=== PATIENT | female | born 1980 | race American Indian/Alaskan Native ===

== ENCOUNTER 2017-01-26 15:27 | Emergency (ER) | payer MEDICAID ==
[2017-01-26 15:28] VITALS: BMI 26.6
[2017-01-26 15:49] VITALS: BP 140/81; TEMP 98.4
[2017-01-26 15:58] VITALS: O2SAT 98
--- NOTE | 2017-01-26 16:06 | ED PDOC ---
Arrival/HPI - General Chief Complaint: Lower Extremity Problem/Injury Time Seen by Provider: 01/26/17 15:58 Historian: Patient - History of Present Illness Narrative History of Present Illness (Text): 01/26/17 17:54 36-year-old female presents today with a one-week history of left ankle and left foot pain. Patient states she had tripped getting out of her truck and twisted the foot and ankle O week ago. Patient states she's been ambulating on it and she is having intermittent swelling and still having pain over the lateral aspect of the ankle and the dorsal aspect of the foot. She denies numbness weakness or tingling in the extremity. Patient states she's been taking some [id number] medications for pain without improvement. Past Medical History - Provider Review Nursing Documentation Reviewed: Yes - Travel History Have you recently traveled outside [place] w/in the past 3 mons?: No - Past History Past History: No Previous - Infectious Disease Hx of Infectious Diseases: None - Tetanus Immunization Tetanus Immunization: Unknown - Past Medical History Past Medical History: No Previous - Cardiac Hx Pacemaker: No - Pulmonary Hx Respiratory Disorders: No - Neurological Hx Migraine: Yes - HEENT Hx HEENT Disorder: No Hx Blind: No Hx Cataracts: No Hx Deafness: No Hx Difficulty Chewing: No Hx Epistaxis: No Hx Glaucoma: No Hx Macular Degeneration: No - Renal Hx Renal Disorder: No Hx Dialysis: No Hx Kidney Stones: No Hx Neurogenic Bladder: No Hx Pyelonephritis: No Hx Renal Cancer: No Hx Renal Failure: No - Endocrine/Metabolic Hx Endocrine Disorders: No - Hematological/Oncological Hx Blood Transfusions: No Hx Blood Transfusion Reaction: No - Integumentary Hx Dermatological Disorder: No - Musculoskeletal/Rheumatological Hx Musculoskeletal Disorders: No - Gastrointestinal Hx Gastrointestinal Disorders: Yes Hx Gastritis: Yes Other/Comment: gastritis - Genitourinary/Gynecological Hx Genitourinary Disorders: No Hx Prostate Problems: No Hx Urinary Tract Infection: Yes - Psychiatric Hx Emotional Abuse: No Hx Physical Abuse: No Hx Substance Use: No - Surgical History Hx Appendectomy: Yes - Anesthesia Hx Anesthesia Reactions: Yes Hx Malignant Hyperthermia: No - Suicidal Assessment Feels Threatened In Home Enviroment: No Family/Social History - Physician Review Nursing Documentation Reviewed: Yes Family/Social History: Unknown Family HX Smoking Status: Never Smoked Hx Alcohol Use: Yes Frequency of alcohol use: Few days per week Hx Substance Use: No Hx Substance Use Treatment: No Allergies/Home Meds Allergies/Adverse Reactions: Allergies prochlorperazine [From Compazine] Allergy (Verified 01/26/17 15:50) RASH prochlorperazine edisylate [From Compazine] Allergy (Verified 01/26/17 15:50) RASH prochlorperazine maleate [From Compazine] Allergy (Verified 01/26/17 15:50) RASH Home Medications: Home Meds Medication Instructions Recorded Confirmed Ranitidine HCl [Zantac] 150 mg PO DAILY 12/30/16 01/26/17 Amitriptyline [Elavil] 10 mg PO DAILY 01/26/17 01/26/17 Review of Systems - Review of Systems Constitutional: absent: Fatigue, Fevers Respiratory: absent: SOB, Cough Cardiovascular: absent: Chest Pain, Palpitations Gastrointestinal: absent: Abdominal Pain, Nausea, Vomiting Genitourinary Female: absent: Dysuria, Frequency, Hematuria Musculoskeletal: Arthralgias (left ankle/foot pain) Skin: absent: Rash, Pruritis Physical Exam Vital Signs Reviewed: Yes Vital Signs Temp Pulse Resp BP Pulse Ox 01/26/17 15:58 88 H 98 01/26/17 15:43 98.4 F 87 18 140/81 99 Temperature: Afebrile Blood Pressure: Normal Pulse: Regular Respiratory Rate: Normal Appearance: Positive for: Well-Appearing, Non-Toxic, Comfortable Pain Distress: None Mental Status: Positive for: Alert and Oriented X 3 - Systems Exam Head: Present: Atraumatic Neck: Present: Normal Range of Motion Respiratory/Chest: Present: Clear to Auscultation, Good Air Exchange. No: Respiratory Distress, Accessory Muscle Use Cardiovascular: Present: Regular Rate and Rhythm, Normal S1, S2. No: Murmurs Lower Extremity: Present: NORMAL PULSES, Normal ROM, Tenderness (Left ankle; + ttp over lateral malleolus, no edema, no erythema; no ecchymosis; full rom of ankle with pain. sensation and distal pulses intact. cap refill <2. + ttp over dorsal aspect of the foot; no edema. ), Neurovascularly Intact. No: CALF TENDERNESS, Swelling, Erythema, Deformity, Capillary Refill < 2 s Neurological: Present: GCS=15 Skin: Present: Warm, Dry, Normal Color. No: Rashes Psychiatric: Present: Alert, Oriented x 3 Medical Decision Making ED Course and Treatment: 01/26/17 17:56 Patient nontoxic well-appearing in no distress with stable vital signs X-rays of the left ankle: No fracture X-rays of the left foot: No fracture Toradol IM Patient placed in [employer]irc[employer] crutches given for ambulation. I discussed all results in depth with the patient advised to followup with the orthopedist within the next 2 days. Advised return if symptoms worsen persist or new symptoms develop i advised the patient that although the xrays show no fracture; there is still a possibility for ligamentous or tendon injury the patient must see the orthopedist for further evaluation. Patient verbalizes understanding of discharge instructions and need for immediate followup. all aspects of this case were discussed the attending of record. Impression: Ankle pain, foot pain Motrin every 6 hours as needed for pain Rest, ice, compression, elevation Use crutches for ambulation Followup with the orthopedist within the next 2 days Followup with primary care physician within the next 2 days Return if symptoms worsen persist or if new symptoms develop - RAD Interpretation Radiology Orders: 01/26/17 15:59 ANKLE LEFT 3 VIEWS ROUTINE [RAD] Stat FOOT LEFT 3 VIEWS ROUTINE [RAD] Stat - Medication Orders Current Medication Orders: Discontinued Medications Ketorolac Tromethamine (Toradol) 60 mg IM STAT STA Stop: 01/26/17 16:00 Last Admin: 01/26/17 16:08 Dose: 60 MG IM Administration Charges Document 01/26/17 16:08 [email or web address] (Rec: 01/26/17 16:08 [email or web address] [facility] [place]-FAST- TRACK2) Injection Site MAR Injection Site Right Gluteus Raúl Charges for Administration # of IM Administrations 1 Disposition/Present on Arrival - Present on Arrival Any Indicators Present on Arrival: No History of DVT/PE: No History of Uncontrolled Diabetes: No Urinary Catheter: No History of Decub. Ulcer: No History Surgical Site Infection Following: None - Disposition Have Diagnosis and Disposition been Completed?: Yes Diagnosis: Ankle pain Disposition: HOME/ ROUTINE Disposition Time: 16:06 Patient Plan: Discharge Patient Problems: Current Active Problems Problem Status Diagnosed Ankle pain Acute Intractable abdominal pain Acute Condition: GOOD Discharge Instructions (ExitCare): Arthralgia (ED) Additional Instructions: Motrin every 6 hours as needed for pain Rest, ice, compression, elevation Use crutches for ambulation Followup with the orthopedist within the next 2 days Followup with primary care physician within the next 2 days Return if symptoms worsen persist or if new symptoms develop Prescriptions: Ibuprofen [Motrin] 600 mg PO Q6H PRN #20 tab PRN Reason: pain/fever reduction Referrals: Tiara Howe [Primary Care Provider] - Follow up with primary Clarence Stuart III, MD [Medical Doctor] - Follow up with primary [facility] [place] [Outside] - Follow up with primary Forms: WORK NOTE
[2017-01-26 17:59] VITALS: PULSE 87; RESP 17
--- NOTE | 2017-01-26 18:22 | RAD ---
PROCEDURE: Left ankle radiographs Left foot radiographs HISTORY: ankle/foot pain s/p injury 1 week ago COMPARISON: None FINDINGS: BONES: No acute displaced fracture. JOINTS: No dislocation. SOFT TISSUES: Unremarkable. No evidence of radiopaque foreign body. OTHER FINDINGS: None. IMPRESSION: No acute displaced fracture, dislocation, or significant joint effusion identified. If symptoms persist or if there is clinical concern, x-ray follow-up in 7-10 days should be considered.
== END 2017-01-26 17:59 | disposition home or self-care (01) ==
LOC: ED 15:27
DX: M25.572 Pain in left ankle and joints of left foot (principal)
CPT/HCPCS: 73610; 73630; 96372; 99283; J1885